=== PATIENT | female | born 1985 | race Native Hawaiian/Other Pacific Islander ===

== ENCOUNTER 2017-04-26 16:48 | Outpatient (CLI) | payer OTHER ==
[~2017-04-26 16:48] MED LIST: HYDR25TA60 PO; LABETALOL100 MG PO; LEVO0.0218 PO; PERCOCET1 TA3 PO
== END 2017-04-26 20:00 | disposition home or self-care (01) ==
LOC: INF 16:48
DX: R05 Cough (principal); E86.0 Dehydration
CPT/HCPCS: 96360; 96361

== ENCOUNTER 2017-11-01 17:06 | Outpatient (CLI) | payer BC, OTHER | END 2017-11-01 20:34 | disposition home or self-care (01) | LOC: RAD 17:06 | DX: S22.20XD Unspecified fracture of sternum, subsequent encounter for fracture with routine healing (principal) ==

== ENCOUNTER 2021-02-24 09:28 | Outpatient (CLI) | payer OTHER | END 2021-02-24 15:43 | disposition home or self-care (01) | LOC: CT 09:28 | PROVIDERS: ATTEND Nurse Practitioner Family | DX: R10.84 Generalized abdominal pain (principal) | CPT/HCPCS: Q9963 ==

== ENCOUNTER 2021-11-30 09:17 | Outpatient (CLI) | payer OTHER ==
[2021-11-30 09:46] LABS: PLATELET COUNT 391 K/uL (152-353)
[2021-11-30 10:29] LABS: POTASSIUM 3.9 mmol/L (3.6-5.2)
== END 2021-11-30 18:56 | disposition home or self-care (01) ==
LOC: LABW 09:17
PROVIDERS: ATTEND Nurse Practitioner Family
DX: R59.1 Generalized enlarged lymph nodes (principal)
CPT/HCPCS: 80053; 81000; 85027

== ENCOUNTER 2022-02-09 13:02 | Outpatient (CLI) | payer OTHER | END 2022-02-09 19:21 | disposition home or self-care (01) | LOC: RAD 13:02 | PROVIDERS: ATTEND Family Medicine | DX: K59.00 Constipation, unspecified (principal) ==

== ENCOUNTER 2022-02-11 10:47 | Outpatient (CLI) | payer OTHER | END 2022-02-11 19:04 | disposition home or self-care (01) | LOC: RAD 10:47 | PROVIDERS: ATTEND Nurse Practitioner Family | DX: K59.00 Constipation, unspecified (principal) ==